=== PATIENT | male | born 1955 | race Caucasian/White ===

== ENCOUNTER 2017-10-11 20:22 | Emergency (ER) | payer SELFPAY ==
[2017-10-11 20:30] VITALS: BP 163/91
== END 2017-10-11 20:47 | disposition left against medical advice (07) ==
LOC: JD.ED 20:22
DX: Z53.21 Procedure and treatment not carried out due to patient leaving prior to being seen by health care provider (principal)

== ENCOUNTER 2019-03-26 17:14 | Emergency (ER) | payer BC, OTHER ==
[2019-03-26 17:22] VITALS: BP 183/104; PULSE 77
--- NOTE | 2019-03-26 18:05 | EDM.PDOCBH ---
ED HPI GENERAL MEDICAL PROBLEM - General Chief Complaint: Drug or Alcohol Abuse Stated Complaint: [facility] Time Seen by Provider: 03/26/19 17:26 Source of Information: Reports: Patient, EMS History Limitations: Reports: Intoxication - History of Present Illness INITIAL COMMENTS - FREE TEXT/NARRATIVE: The patient presents by [facility] for intoxication. He was found outside in the cold without close on. He had abrasions to his left knee. He denies having a headache or neck pain. He has no chest pain, shortness of breath, abdominal pain, nausea or vomiting. He does admit to drinking today. Onset: Gradual Duration: Hour(s): Location: Reports: Lower Extremity, Left (knee) Quality: Reports: Sharp Severity: Mild Improves with: Reports: None Worsens with: Reports: None Associated Symptoms: Reports: No Other Symptoms Left Knee Pain Score (Numeric/FACES): 8 - Related Data Allergies Allergy/AdvReac Type Severity Reaction Status Date / Time No Known Allergies Allergy Verified 03/26/19 17:22 Home Meds: Home Meds . [No Known Home Meds] 03/26/19 [History] Past Medical History Cardiovascular History: Reports: Hypertension Endocrine/Metabolic History: Reports: Diabetes, Type II - Past Surgical History Other Endocrine Surgeries/Procedures: patient refuses to take medication Social & Family History - Family History Family Medical History: Noncontributory - Tobacco Use Smoking Status *Q: Current Every Day Smoker Years of Tobacco use: 3 Packs/Tins Daily: 1 - Caffeine Use Caffeine Use: Reports: None - Recreational Drug Use Recreational Drug Use: No - Living Situation & Occupation Living situation: Reports: , with Spouse Occupation: Unemployed ED ROS GENERAL - Review of Systems Review Of Systems: See Below Constitutional: Reports: No Symptoms HEENT: Reports: No Symptoms Respiratory: Reports: No Symptoms Cardiovascular: Reports: No Symptoms Endocrine: Reports: No Symptoms GI/Abdominal: Reports: No Symptoms : Reports: No Symptoms Musculoskeletal: Reports: No Symptoms ED EXAM, BEHAVIORAL HEALTH - Physical Exam Exam: See Below Exam Limited By: Intoxication General Appearance: Alert, No Apparent Distress Ears: Normal External Exam Nose: Normal Inspection Head: Atraumatic, Normocephalic Neck: Normal Inspection Respiratory/Chest: No Respiratory Distress, Lungs Clear, Normal Breath Sounds Cardiovascular: Regular Rate, Rhythm, No Edema, No Murmur GI/Abdominal: Soft, Non-Tender, No Organomegaly, No Mass Extremities: Other (Abrasions and pain upon palpation to the left knee.) Neurological: Alert, No Motor/Sensory Deficits, Oriented x 3 COURSE, BEHAVIORAL HEALTH COMP - Course Vital Signs: Last Vital Signs Temp 97.4 F 03/26/19 17:17 Pulse 77 03/26/19 17:17 Resp 16 03/26/19 17:17 BP 183/104 H 03/26/19 17:17 Pulse Ox 95 03/26/19 17:17 Orders, Labs, Meds: Active Orders 24 hr Category Date Time Status Cardiac Monitoring [RC] . DIRECTED Care 03/26/19 17:30 Active Knee Min 4V Lt [CR] Stat Exams 03/26/19 17:30 Taken CBC WITH AUTO DIFF [HEME] Stat Lab 03/26/19 17:47 Received COMPREHENSIVE METABOLIC PN,CMP [CHEM] Stat Lab 03/26/19 17:47 Received DRUG SCREEN, URINE [URCHEM] Stat Lab 03/26/19 17:30 Ordered ETHANOL BLOOD MEDICAL [CHEM] Stat Lab 03/26/19 17:47 Received MAGNESIUM [CHEM] Stat Lab 03/26/19 17:47 Received Re-Assessment/Re-Exam: I ordered an x-ray of his knee and it looks good. I ordered some labs. The patient is up and walking around the department and he would like to go. I feel it is safe. I will discharge him home. Departure - Departure Time of Disposition: 18:20 Disposition: Home, Self-Care 01 Condition: Good Clinical Impression: Alcohol abuse Alcohol intoxication Qualifiers: Complication of substance-induced condition: uncomplicated Qualified Code(s): F10.920 - Alcohol use, unspecified with intoxication, uncomplicated - Discharge Information *PRESCRIPTION DRUG MONITORING PROGRAM REVIEWED*: Not Applicable *COPY OF PRESCRIPTION DRUG MONITORING REPORT IN PATIENT [place]: Not Applicable Referrals: PCP,None [Primary Care Provider] - Luis López PA-C [Physician [facility] [employer]] - 1 Week Additional Instructions: Drink plenty of fluids. Go home and rest. Do not drink anymore tonight. If you need help stopping drinking, call [facility] [place] at [phone]. Please return if you are worse. Sepsis Event Note - Evaluation Sepsis Screening Result: No Definite Risk - Focused Exam Vital Signs: Vital Signs Temp Pulse Resp BP Pulse Ox 03/26/19 17:17 97.4 F 77 16 183/104 H 95 Date Exam was Performed: 03/26/19 Time Exam was Performed: 18:12 - My Orders Last 24 Hours: My Active Orders 03/26/19 17:30 Cardiac Monitoring [RC] . DIRECTED Knee Min 4V Lt [CR] Stat DRUG SCREEN, URINE [URCHEM] Stat 03/26/19 17:47 CBC WITH AUTO DIFF [HEME] Stat COMPREHENSIVE METABOLIC PN,CMP [CHEM] Stat ETHANOL BLOOD MEDICAL [CHEM] Stat MAGNESIUM [CHEM] Stat - Assessment/Plan Last 24 Hours: My Active Orders 03/26/19 17:30 Cardiac Monitoring [RC] . DIRECTED Knee Min 4V Lt [CR] Stat DRUG SCREEN, URINE [URCHEM] Stat 03/26/19 17:47 CBC WITH AUTO DIFF [HEME] Stat COMPREHENSIVE METABOLIC PN,CMP [CHEM] Stat ETHANOL BLOOD MEDICAL [CHEM] Stat MAGNESIUM [CHEM] Stat
--- NOTE | 2019-03-27 07:27 | CR ---
Left knee: Four views of the left knee were obtained. Comparison: No prior left knee exam. No joint effusion is seen. Minimal medial joint space narrowing is noted. Lateral joint space is preserved. No fracture or other bony abnormality is seen. Mild vascular calcification is seen. Impression: 1. Mild medial joint space narrowing. 2. Vascular calcification. 3. No acute abnormality is appreciated on left knee exam. Diagnostic code #2 This report was dictated in [place] Standard Time
== END 2019-03-26 18:33 | disposition home or self-care (01) ==
LOC: JD.ED 17:14
DX: S80.212A Abrasion, left knee, initial encounter (principal); F10.129 Alcohol abuse with intoxication, unspecified; I10 Essential (primary) hypertension; E11.9 Type 2 diabetes mellitus without complications; F17.210 Nicotine dependence, cigarettes, uncomplicated; X58.XXXA Exposure to other specified factors, initial encounter
CPT/HCPCS: 36415; 73564-26-LT; 73564-LT; 80053; 80306; 83735; 85025; 99282; 99284-25; G0480

== ENCOUNTER 2019-05-27 14:59 | Emergency (ER) | payer BC ==
[2019-05-27 15:10] VITALS: BP 187/104; PULSE 115
--- NOTE | 2019-05-27 15:54 | CT ---
Head CT Technique: Multiple axial sections through the brain were obtained. Intravenous contrast was not utilized. Comparison: No prior intracranial imaging is available. Findings: Ventricles along with basal cisterns and sulci over the convexities are mildly prominent. Minimal areas of decreased signal is seen within the periventricular white matter compatible with small vessel ischemic demyelination change. No other abnormal parenchymal densities are seen. No evidence of intracranial hemorrhage. No midline shift or mass effect is seen. Mild atherosclerotic calcification is seen within the carotid siphon. No acute calvarial abnormality is appreciated. No acute mastoid sinus or paranasal sinus disease is seen. Soft tissue swelling seen lateral to the left orbit. Small amount of soft tissue air is seen compatible with soft tissue injury. Impression: 1. Soft tissue swelling and injury lateral to the left orbit. 2. Mild senescent change as noted above. 3. No acute intracranial abnormality is identified. Diagnostic code #2 Study was dictated in [place] Standard Time
[2019-05-27] MEDS ORDERED: Lidocaine 1% with EPINEPHrine 1:100,000 20 ML MDV INJECT ONE (16:51)
--- NOTE | 2019-05-27 17:53 | EDM.PDOC ---
ED HPI GENERAL MEDICAL PROBLEM - General Chief Complaint: Laceration Stated Complaint: [facility] Time Seen by Provider: 05/27/19 15:14 Source of Information: Reports: Patient, EMS History Limitations: Reports: No Limitations - History of Present Illness INITIAL COMMENTS - FREE TEXT/NARRATIVE: The patient was found at the [employer] with a laceration to his head. He missed some steps in a dark stair case and fell down many steps. He has a laceration to the left and below his left eye. He had no LOC. He has no neck pain. He is not intoxicated. He is not on any blood thinners. He has abrasions to both arms. He has pain to the right thumb. His tetanus is up to date. Onset: Sudden Duration: Minutes: Location: Reports: Face, Upper Extremity, Left (hand) Quality: Reports: Sharp Severity: Moderate Improves with: Reports: None Worsens with: Reports: None Associated Symptoms: Reports: No Other Symptoms - Related Data Allergies Allergy/AdvReac Type Severity Reaction Status Date / Time No Known Allergies Allergy Verified 05/27/19 15:09 Home Meds: Home Meds . [No Known Home Meds] 03/26/19 [History] Past Medical History Cardiovascular History: Reports: Hypertension Endocrine/Metabolic History: Reports: Diabetes, Type II - Past Surgical History Other Endocrine Surgeries/Procedures: patient refuses to take medication Social & Family History - Family History Family Medical History: Noncontributory - Tobacco Use Smoking Status *Q: Current Every Day Smoker Years of Tobacco use: 40 Packs/Tins Daily: 1 - Caffeine Use Caffeine Use: Reports: Coffee - Living Situation & Occupation Living situation: Reports: , with Spouse Occupation: Unemployed ED ROS GENERAL - Review of Systems Review Of Systems: See Below Constitutional: Reports: No Symptoms HEENT: Reports: No Symptoms Respiratory: Reports: No Symptoms Cardiovascular: Reports: No Symptoms Endocrine: Reports: No Symptoms GI/Abdominal: Reports: No Symptoms : Reports: No Symptoms Musculoskeletal: Reports: Other (right thumb pain) ED EXAM, SKIN/RASH Exam: See Below Exam Limited By: No Limitations General Appearance: Alert, No Apparent Distress Ears: Normal External Exam Nose: Normal Inspection Throat/Mouth: Normal Inspection Head: Other (2.5cm laceration to the left lateral face just below the corner of his eye) Neck: Normal Inspection, Supple, Non-Tender Respiratory/Chest: No Respiratory Distress, Lungs Clear, Normal Breath Sounds Cardiovascular: Regular Rate, Rhythm, No Edema, No Murmur GI/Abdominal: Soft, Non-Tender, No Organomegaly, No Mass Back Exam: Normal Inspection Extremities: Other (Pain upon palpation to the right hand and thumb) ED SKIN PROCEDURES - Laceration/Wound Repair Left Face Appearance: Subcutaneous, Irregular Anesthetic Type: Local Local Anesthesia - Lidocaine (Xylocaine): 1% with EPI Skin Prep: Saline Exploration/Debridement/Repair: Wound Explored, In a Bloodless Field, Explored to Base Closed with: Sutures Lac/Wound length In cm: 2.5 Suture Size: 4-0 # of Sutures: 7 Suture Type: Nylon, Interrupted, Simple Suture Size: 4-0 # of Sutures: 2 Repaired with: Vicryl Tetanus Status Addressed: Yes Complications: No Course - Vital Signs Last Recorded V/S: Last Vital Signs Temp 98.2 F 05/27/19 15:03 Pulse 115 H 05/27/19 15:03 Resp 18 05/27/19 15:03 BP 187/104 H 05/27/19 15:03 Pulse Ox 97 05/27/19 15:03 - Orders/Labs/Meds Orders: Active Orders 24 hr Category Date Time Status Cardiac Monitoring [RC] . DIRECTED Care 05/27/19 15:21 Active Hand Comp Min 3V Rt [CR] Stat Exams 05/27/19 15:22 Taken Labs: Laboratory Tests 05/27/19 05/27/19 05/27/19 Range/Units 15:25 15:25 15:25 WBC 5.86 (4.23-9.07) K/mm3 RBC 4.82 (4.63-6.08) M/mm3 Hgb 18.0 H (13.7-17.5) gm/dl Hct 48.0 (40.1-51.0) % MCV 99.6 H (79.0-92.2) fl MCH 37.3 H (25.7-32.2) pg MCHC 37.5 H (32.2-35.5) g/dl RDW Std Deviation 50.4 H (35.1-43.9) fL Plt Count 177 (163-337) K/mm3 MPV 8.5 L (9.4-12.3) fl Neut % (Auto) 54.3 (34.0-67.9) % Lymph % (Auto) 30.4 (21.8-53.1) % Hood % (Auto) 13.0 H (5.3-12.2) % Eos % (Auto) 0.9 (0.8-7.0) Baso % (Auto) 0.7 (0.1-1.2) % Neut # (Auto) 3.19 (1.78-5.38) K/mm3 Lymph # (Auto) 1.78 (1.32-3.57) K/mm3 Hood # (Auto) 0.76 (0.30-0.82) K/mm3 Eos # (Auto) 0.05 (0.04-0.54) K/mm3 Baso # (Auto) 0.04 (0.01-0.08) K/mm3 Manual Slide Review Abnormal smear PT 11.2 (9.7-12.0) SECONDS INR 1.03 APTT 29 (22-31) SECONDS Sodium 136 D (136-145) mEq/L Potassium 2.8 L (3.5-5.1) mEq/L Chloride 97 L (98-107) mEq/L Carbon Dioxide 25 (21-32) mEq/L Anion Gap 16.8 H (5-15) BUN 4 L (7-18) mg/dL Creatinine 0.7 (0.7-1.3) mg/dL Est Cr Clr Drug Dosing 94.77 mL/min Estimated GFR (MDRD) > 60 (>60) mL/min BUN/Creatinine Ratio 5.7 L (14-18) Glucose 106 (80-115) mg/dL Calcium 8.9 (8.5-10.1) mg/dL Total Bilirubin 1.1 H (0.2-1.0) mg/dL AST 43 H (15-37) U/L ALT 39 (16-63) U/L Alkaline Phosphatase 87 (46-116) U/L Total Protein 7.0 (6.4-8.2) g/dl Albumin 3.3 L (3.4-5.0) g/dl Globulin 3.7 gm/dL Albumin/Globulin Ratio 0.9 L (1-2) Urine Opiates Screen (CDIUAX=918) Ur Buprenorphine Scrn (CUTOFF=10) Ur Oxycodone Screen (XSF6SC=872) Urine Methadone Screen (VKJ4SG=852) Ur Propoxyphene Screen (IMYPJG=311) Ur Barbiturates Screen (NCQFCC=656) Ur Tricyclics Screen (TATDSZ=660) Ur Phencyclidine Scrn (CUTOFF=25) Ur Amphetamine Screen (KWJSBM=590) U Methamphetamines Scrn (YVGCCP=545) U Benzodiazepines Scrn (ADUQUN=950) U Cocaine Metab Screen (OBGJDY=279) U Marijuana (THC) Screen (CUTOFF=50) Ethyl Alcohol 0.01 (0.00) gm% 05/27/19 Range/Units 16:26 WBC (4.23-9.07) K/mm3 RBC (4.63-6.08) M/mm3 Hgb (13.7-17.5) gm/dl Hct (40.1-51.0) % MCV (79.0-92.2) fl MCH (25.7-32.2) pg MCHC (32.2-35.5) g/dl RDW Std Deviation (35.1-43.9) fL Plt Count (163-337) K/mm3 MPV (9.4-12.3) fl Neut % (Auto) (34.0-67.9) % Lymph % (Auto) (21.8-53.1) % Hood % (Auto) (5.3-12.2) % Eos % (Auto) (0.8-7.0) Baso % (Auto) (0.1-1.2) % Neut # (Auto) (1.78-5.38) K/mm3 Lymph # (Auto) (1.32-3.57) K/mm3 Hood # (Auto) (0.30-0.82) K/mm3 Eos # (Auto) (0.04-0.54) K/mm3 Baso # (Auto) (0.01-0.08) K/mm3 Manual Slide Review PT (9.7-12.0) SECONDS INR APTT (22-31) SECONDS Sodium (136-145) mEq/L Potassium (3.5-5.1) mEq/L Chloride (98-107) mEq/L Carbon Dioxide (21-32) mEq/L Anion Gap (5-15) BUN (7-18) mg/dL Creatinine (0.7-1.3) mg/dL Est Cr Clr Drug Dosing mL/min Estimated GFR (MDRD) (>60) mL/min BUN/Creatinine Ratio (14-18) Glucose (80-115) mg/dL Calcium (8.5-10.1) mg/dL Total Bilirubin (0.2-1.0) mg/dL AST (15-37) U/L ALT (16-63) U/L Alkaline Phosphatase (46-116) U/L Total Protein (6.4-8.2) g/dl Albumin (3.4-5.0) g/dl Globulin gm/dL Albumin/Globulin Ratio (1-2) Urine Opiates Screen Negative (LRIURH=603) Ur Buprenorphine Scrn Negative (CUTOFF=10) Ur Oxycodone Screen Negative (IXR9OC=583) Urine Methadone Screen Negative (NZF6DZ=259) Ur Propoxyphene Screen Negative (CGSSFK=174) Ur Barbiturates Screen Negative (KHELWG=939) Ur Tricyclics Screen Negative (RUGAKF=336) Ur Phencyclidine Scrn Negative (CUTOFF=25) Ur Amphetamine Screen Negative (IZGFYC=141) U Methamphetamines Scrn Negative (ARPYSC=119) U Benzodiazepines Scrn Negative (QNJSKF=022) U Cocaine Metab Screen Negative (IMCCBP=563) U Marijuana (THC) Screen Negative (CUTOFF=50) Ethyl Alcohol (0.00) gm% Meds: Medications Discontinued Medications Generic Name Dose Route Start Last Admin Trade Name Freq PRN Reason Stop Dose Admin Lidocaine/Epinephrine 20 ml 05/27/19 16:51 05/27/19 17:10 Xylocaine 1% With Epinephrine 1:100,000 INJECT 05/27/19 16:52 20 ml ONETIME ONE Administration - Re-Assessments/Exams Free Text/Narrative Re-Assessment/Exam: 05/27/19 17:54 I ordered labs, CT of his head and an x-ray of his right hand. The x-ray looks good. 05/27/19 17:56 His CBC looks good. His PT and PTT look good. His K was low at 2.8. His UDS was negative. His alcohol was 0.01. His CT shows soft tissue swelling and injury lateral to the left orbit. Mild senescent change as noted above. No acute intracranial abnormality is identified. Departure - Departure Time of Disposition: 17:50 Disposition: DC/Tfer to Acute Hospital 02 Condition: Good Clinical Impression: Multiple abrasions Fall Qualifiers: Encounter type: initial encounter Qualified Code(s): W19.XXXA - Unspecified fall, initial encounter Facial laceration Qualifiers: Encounter type: initial encounter Qualified Code(s): S01.81XA - Laceration without foreign body of other part of head, initial encounter Sprain of right thumb Qualifiers: Encounter type: initial encounter Sprain of finger site: metacarpophalangeal joint Qualified Code(s): S63.641A - Sprain of metacarpophalangeal joint of right thumb, initial encounter - Discharge Information *PRESCRIPTION DRUG MONITORING PROGRAM REVIEWED*: Not Applicable *COPY OF PRESCRIPTION DRUG MONITORING REPORT IN PATIENT [place]: Not Applicable Referrals: Alfredo Earl MD [Primary Care Provider] - 1 Week Additional Instructions: Ice your face for 15 minutes 3 to 5 times per day for 2 days. Clean the laceration with warm soapy water 2 times per day and apply antibiotic ointment after. Have the sutures removed in 1 week. Please return if you are worse. Your potassium was low. Take a multivitamin that contains potassium. Sepsis Event Note - Evaluation Sepsis Screening Result: No Definite Risk - Focused Exam Vital Signs: Vital Signs Temp Pulse Resp BP Pulse Ox 05/27/19 15:03 98.2 F 115 H 18 187/104 H 97 Date Exam was Performed: 05/27/19 Time Exam was Performed: 17:48 - My Orders Last 24 Hours: My Active Orders 05/27/19 15:21 Cardiac Monitoring [RC] . DIRECTED 05/27/19 15:22 Hand Comp Min 3V Rt [CR] Stat - Assessment/Plan Last 24 Hours: My Active Orders 05/27/19 15:21 Cardiac Monitoring [RC] . DIRECTED 05/27/19 15:22 Hand Comp Min 3V Rt [CR] Stat
--- NOTE | 2019-05-29 13:53 | CR ---
Right hand: Two views of the right hand were obtained. Comparison: No prior hand exam. Scattered joint space narrowing within the MCP joints is noted. Mild joint space narrowing is also scattered within the DIP joints as well as IP joint of the thumb. Joint space narrowing is noted off the distal navicular bone. No acute fracture, dislocation or other bony abnormality is appreciated. Impression: 1. Degenerative change as noted above. 2. Nothing acute is appreciated on right hand exam. Diagnostic code #2 Study was dictated in [place] Standard Time
== END 2019-05-27 18:00 ==
LOC: JD.ED 14:59
DX: S01.81XA Laceration without foreign body of other part of head, initial encounter (principal); S63.641A Sprain of metacarpophalangeal joint of right thumb, initial encounter; F17.210 Nicotine dependence, cigarettes, uncomplicated; W10.9XXA Fall (on) (from) unspecified stairs and steps, initial encounter
CPT/HCPCS: 12011; 36415; 70450; 70450-26; 73130-26-RT; 73130-RT; 80053; 80306; 80307; 85025; 85610; 85730; 99285-25